=== PATIENT | female | born 1955 | race Caucasian/White ===

== ENCOUNTER 2022-10-21 04:41 | Day surgery (SDC) | payer OTHER ==
[2022-10-17 09:36] VITALS: BMI 28.3
[2022-10-21 09:44] VITALS: TEMP 97.5
[2022-10-21 13:31] VITALS: BP 128/70; PULSE 66; RESP 14
== END 2022-10-21 10:30 | disposition home or self-care (01) ==
LOC: JASU-ENDO 04:41
PROVIDERS: ATTEND Student in an Organized Health Care Education/Training Program
PROC: 0DB78ZX Excision of Stomach, Pylorus, Via Natural or Artificial Opening Endoscopic, Diagnostic (ICD-10-PCS; 2022-10-21)
PROC: 0DB68ZX Excision of Stomach, Via Natural or Artificial Opening Endoscopic, Diagnostic (ICD-10-PCS; 2022-10-21)
PROC: 0DB38ZX Excision of Lower Esophagus, Via Natural or Artificial Opening Endoscopic, Diagnostic (ICD-10-PCS; 2022-10-21)
PROC: 0DB48ZX Excision of Esophagogastric Junction, Via Natural or Artificial Opening Endoscopic, Diagnostic (ICD-10-PCS; principal; 2022-10-21 09:00)
DX: K20.90 Esophagitis, unspecified without bleeding (principal); K29.70 Gastritis, unspecified, without bleeding; B96.81 Helicobacter pylori [H. pylori] as the cause of diseases classified elsewhere
CPT/HCPCS: 82962; 88305-TC; 88342-TC

== ENCOUNTER 2022-10-28 04:35 | Day surgery (SDC) | payer OTHER ==
[2022-10-22 14:32] VITALS: BMI 28.3
[2022-10-28 09:31] VITALS: TEMP 97.7
[2022-10-28 09:47] VITALS: BP 119/51
[2022-10-28 10:08] VITALS: PULSE 57; RESP 20
== END 2022-10-28 12:06 | disposition home or self-care (01) ==
LOC: JASU-ENDO 04:35
PROVIDERS: ATTEND Student in an Organized Health Care Education/Training Program
PROC: 0D5P8ZZ Destruction of Rectum, Via Natural or Artificial Opening Endoscopic (ICD-10-PCS; 2022-10-28)
PROC: 0D5K8ZZ Destruction of Ascending Colon, Via Natural or Artificial Opening Endoscopic (ICD-10-PCS; principal; 2022-10-28 08:30)
DX: Z12.11 Encounter for screening for malignant neoplasm of colon (principal); D12.2 Benign neoplasm of ascending colon; K62.1 Rectal polyp; K64.8 Other hemorrhoids
CPT/HCPCS: 82962; 88305-TC